=== PATIENT | male | born 1945 | race African-American/Black ===

== ENCOUNTER 2017-08-29 23:07 | Emergency (ER) | payer MEDICARE ==
[~2017-08-29] VITALS: Ht 177.8 cm; Wt 80.3 kg
[2017-08-29] MEDS ORDERED: NKM (23:21)
--- NOTE | 2017-08-29 23:56 | Emergency Room Report ---
History of Present Illness General Chief Complaint: Flu Like Symptoms Source: Patient Present Illness HPI 72-year-old male with no sig pmhx p/w abdominal pain cough, fever, chills 4 days. Has had a nonproductive cough, saw his primary care doctor today, the performed a chest x-ray but he does not know the results, was started on Levaquin and Tamiflu today Also complaining of abdominal pain , localized to the lower abdomen, non radiating, sharp in nature, intermittent. Worsened with coughing Pt reports n/v, 1 episodes of nbnb vomiting, denies diarrhea denies any black or bloody stools No hx of abdominal surgeries. No hx of endoscopies/colonoscopies. Denies chest pain or shortness of breath no recent travel Allergies: Coded Allergies: No Known Allergies (Unverified , 08/29/17) Patient History Past Medical History: see triage record Past Surgical History: none Pertinent Family History: none Reviewed Nursing Documentation: PMH: Agreed; PSxH: Agreed Nursing Documentation-PMH Past Medical History: No Stated History Review of Systems All Other Systems: negative except mentioned in HPI Physical Exam Vital Signs Date Time Temp Pulse Resp B/P (MAP) Pulse Ox O2 Delivery O2 Flow Rate FiO2 08/29/17 23:10 99.0 111 18 115/73 95 Room Air 99.0 Sp02 EP Interpretation: reviewed, normal General Appearance: alert, GCS 15, non-toxic, moderate distress Head: normocephalic, atraumatic Eyes: bilateral eye normal inspection, bilateral eye PERRL, bilateral eye EOMI ENT: normal ENT inspection, normal pharynx, normal voice, moist mucus membranes Neck: normal inspection, full range of motion, supple Respiratory: normal inspection, lungs clear, normal breath sounds, no respiratory distress, no retraction, no wheezing, speaking full sentences, chest symmetrical Cardiovascular #1: normal inspection, regular rate, rhythm, no edema, normal capillary refill Cardiovascular #2: 2+ radial (R), 2+ radial (L) Gastrointestinal: other - Right and left lower abdominal tenderness, some voluntary guarding, no rigidity Genitourinary: no CVA tenderness Musculoskeletal: normal inspection, back normal, normal range of motion, non- tender Neurologic: normal inspection, alert, oriented x3, responsive, motor strength/ tone normal, sensory intact, normal gait, speech normal Psychiatric: normal inspection, judgement/insight normal, memory normal Skin: normal inspection, normal color, no rash, warm/dry, well hydrated, normal turgor Medical Decision Making Diagnostic Impression: Primary Impression: Abdominal pain Additional Impression: Nausea ER Course 72-year-old male with abdominal pain, cough, fever, chills Differential Diagnosis: Gastritis, gastroenteritis, cholecystitis, appendicitis, diverticulitis, SBO, mesenteric ischemia, cardiac, UTI/pyelo, pneumonia Plan: Basic labs, ua, ekg CT abdopelvis ER course: Patient has remained stable during ED stay. Pain improved, labs unremarkable, CT unremarkable Repeat abdominal exam is nontender. Tolerating PO Disposition: Patient is to be discharged to home. Patient is instructed to follow up with their primary care doctor within 5 days. Strict return precautions discussed with patient such as fever, chills, worsening/severe abdominal pain, nausea, vomiting, black or bloody stools, which may indicate severe illness. Patient verbalizes understanding and agrees with plan. Please note that this Emergency Department Report was dictated using [employer] and poultry inspector technology software, occasionally this can lead to erroneous entry secondary to interpretation by the dictation equipment EKG Diagnostic Results EP Interpretation: Yes Rate: normal Rhythm: NSR ST Segments: No acute changes ASA given to patient: No Rhythm Strip EP Interpretation: Yes Rate: 90 Rhythm: NSR, no PVCs, no ectopy Chest X-ray CXR: Ordered: Yes 1 view Indication: Chest pain EP interpretation: Yes Interpretation: No consolidation, no effusion, no PTX, no acute cardiopulmonary disease Impression: No acute disease Electronically signed by Tito Rothman MD Laboratory Tests Test 08/30/17 00:00 08/30/17 02:30 White Blood Count 3.3 K/UL (4.8-10.8) L Red Blood Count 4.48 M/UL (4.70-6.10) L Hemoglobin 13.8 G/DL (14.2-18.0) L Hematocrit 40.1 % (42.0-52.0) L Mean Corpuscular Volume 89 FL (80-99) Mean Corpuscular Hemoglobin 30.7 PG (27.0-31.0) Mean Corpuscular Hemoglobin Concent 34.4 G/DL (32.0-36.0) Red Cell Distribution Width 11.5 % (11.6-14.8) L Platelet Count 140 K/UL (150-450) L Mean Platelet Volume 7.5 FL (6.5-10.1) Neutrophils (%) (Auto) % (45.0-75.0) Lymphocytes (%) (Auto) % (20.0-45.0) Monocytes (%) (Auto) % (1.0-10.0) Eosinophils (%) (Auto) % (0.0-3.0) Basophils (%) (Auto) % (0.0-2.0) Differential Total Cells Counted 100 Neutrophils % (Manual) 70 % (45-75) Lymphocytes % (Manual) 7 % (20-45) L Monocytes % (Manual) 22 % (1-10) H Eosinophils % (Manual) 0 % (0-3) Basophils % (Manual) 1 % (0-2) Band Neutrophils 0 % (0-8) Platelet Estimate Decreased L Platelet Morphology Normal Sodium Level 134 MMOL/L (136-145) L Potassium Level 4.1 MMOL/L (3.5-5.1) Chloride Level 99 MMOL/L (98-107) Carbon Dioxide Level 28 MMOL/L (21-32) Anion Gap 7 mmol/L (5-15) Blood Urea Nitrogen 20 mg/dL (7-18) H Creatinine 1.2 MG/DL (0.55-1.30) Estimate Glomerular Filtration Rate > 60 mL/min (>60) Glucose Level 111 MG/DL (74-106) H Lactic Acid Level 0.90 mmol/L (0.66-2.22) Calcium Level 8.4 MG/DL (8.5-10.1) L Total Bilirubin 0.2 MG/DL (0.2-1.0) Aspartate Amino Transferase (AST) 46 U/L (15-37) H Alanine Aminotransferase (ALT) 40 U/L (12-78) Alkaline Phosphatase 76 U/L (46-116) Troponin I 0.000 ng/mL (0.000-0.056) Pro-B-Type Natriuretic Peptide 24 pg/mL (0-125) Total Protein 7.5 G/DL (6.4-8.2) Albumin 3.6 G/DL (3.4-5.0) Globulin 3.9 g/dL Albumin/Globulin Ratio 0.9 (1.0-2.7) L Urine Color Pale yellow Urine Appearance Clear Urine pH 6 (4.5-8.0) Urine Specific [place] 1.015 (1.005-1.035) Urine Protein Negative (NEGATIVE) Urine Glucose (UA) Negative (NEGATIVE) Urine Ketones 1+ (NEGATIVE) H Urine Occult Blood Negative (NEGATIVE) Urine Nitrite Negative (NEGATIVE) Urine Bilirubin Negative (NEGATIVE) Urine Urobilinogen Normal MG/DL (0.0-1.0) Urine Leukocyte Esterase Negative (NEGATIVE) Microbiology Date/Time Source Procedure Growth Status 08/30/17 00:00 Nasal Nares Influenza Types A,B Antigen ([facility]) - Final Complete CT/MRI/US Diagnostic Results CT/MRI/US Diagnostic Results : Imaging Test Ordered: ct abdo pelvis Impression CT ABDOMEN & PELVIS With Contrast: Visualized appendix is normal. No substantial free fluid. No free air. Last Vital Signs Date Time Temp Pulse Resp B/P (MAP) Pulse Ox O2 Delivery O2 Flow Rate FiO2 08/29/17 23:36 111 18 Room Air 08/29/17 23:10 99.0 115/73 95 99.0 Disposition: HOME, SELF-CARE Condition: Improved Scripts Ondansetron Odt* (ZOFRAN ODT*) 4 Mg Tab.rapdis 4 MG ORAL Q6H PRN for Nausea & Vomiting, #15 TAB 0 Refills Prov: Tito Rothman M.D. 08/30/17 Tito Rothman M.D. Aug 29, 2017 23:56
[2017-08-30 00:32] LABS: HEMATOCRIT 40.1 % (42.0-52.0); HEMOGLOBIN 13.8 G/DL (14.2-18.0); MEAN CORPUSCULAR VOLUME 89 FL (80-99); PLATELET COUNT 140 K/UL (150-450); RED BLOOD COUNT 4.48 M/UL (4.70-6.10); RED CELL DISTRIBUTION WIDTH 11.5 % (11.6-14.8); WHITE BLOOD COUNT 3.3 K/UL (4.8-10.8)
[2017-08-30 00:37] LABS: ANION GAP 7 mmol/L (5-15); BLOOD UREA NITROGEN 20 mg/dL (7-18); CALCIUM 8.4 MG/DL (8.5-10.1); CARBON DIOXIDE 28 MMOL/L (21-32); CHLORIDE 99 MMOL/L (98-107); CREATININE 1.2 MG/DL (0.55-1.30); POTASSIUM 4.1 MMOL/L (3.5-5.1); SODIUM 134 MMOL/L (136-145)
[2017-08-30 00:48] LABS: ALANINE AMINOTRANSFERASE 40 U/L (12-78); ALBUMIN 3.6 G/DL (3.4-5.0); ALBUMIN/GLOBULIN RATIO 0.9 (1.0-2.7); ALKALINE PHOSPHATASE 76 U/L (46-116); ASPARTATE AMINO TRANSFERASE 46 U/L (15-37); BILIRUBIN,TOTAL 0.2 MG/DL (0.2-1.0)
[2017-08-30] MEDS ORDERED: ZOFRAN ODT4 MG ORAL (02:47)
[2017-08-30 02:54] VITALS: BP 127/68
[2017-08-30 03:22] LABS: APPEARANCE,URINE CLEAR; BILIRUBIN, URINE NEGATIVE (NEGATIVE); COLOR,URINE PALE YELLOW; GLUCOSE, URINE (UA) NEGATIVE (NEGATIVE); KETONES,URINE 1+ (NEGATIVE); LEUKOCYTE ESTERASE ,URINE NEGATIVE (NEGATIVE); NITRITE,URINE NEGATIVE (NEGATIVE); PH,URINE 6 (4.5-8.0); PROTEIN,URINE NEGATIVE (NEGATIVE); UROBILINOGEN,URINE NORMAL MG/DL (0.0-1.0)
[2017-08-30 03:51] VITALS: BP 135/75
[2017-08-30 03:55] VITALS: BP 135/75
--- NOTE | 2017-08-30 08:42 | Diagnostic Imaging Report ---
Indication: Abdominal pain Technique: Continuous helical transaxial imaging of the abdomen and pelvis was obtained from the lung bases to the pubic symphysis during intravenous contrast administration. Coronal 2-D reformats were also obtained. Study obtained in a Siemens sensation [address] Automatic Exposure Control was utilized. Total Dose length Product (DLP): 519.[address] Dose Index Volume (CTDIvol): 10.24 mGy Comparison: None Findings: The lung bases are clear. There are multiple hypodensities in the liver likely cysts. Similar findings within the kidneys identified. Some are too small to adequately characterize. The spleen is unremarkable. The pancreas is unremarkable. There is a probable gallbladder polyp. No free fluid seen. No evidence of bowel obstruction. Appendix is normal. Urinary bladder is unremarkable. There is a left inguinal hernia containing fat. IMPRESSION: No acute findings. Multiple incidental findings as above. [facility] has communicated the preliminary results to the Emergency Department. Their findings are largely concordant with this report. The CT scanner at [facility] is accredited by the [employer] and the scans are performed using dose optimization techniques as appropriate to a performed exam including Automatic Exposure control.
--- NOTE | 2017-08-30 10:39 | Diagnostic Imaging Report ---
Indication: Cough Comparison: None A single view chest radiograph was obtained. Findings: Cardiomediastinal appearance is within normal limits for age. Pulmonary vascularity is appropriate. The diaphragmatic contour is smooth and costophrenic angles are sharp. No pleural effusions are identified. The bones are unremarkable. Impression: No acute findings
--- NOTE | 2017-08-30 16:31 | Cardiology Report ---
APPROVED REPORT EKG Measurement Heart [id number] Normal sinus rhythm Normal ECG
== END 2017-08-30 03:59 | disposition home or self-care (01) ==
LOC: EMR 23:33 → 2E 08-30 00:48 → UNDOADMIN 08-30 00:48 → EDBEDREQ 08-30 01:12 → EMR 08-30 03:59
DX: R10.9 Unspecified abdominal pain (principal); R11.0 Nausea; K40.90 Unilateral inguinal hernia, without obstruction or gangrene, not specified as recurrent
CPT/HCPCS: 36415; 71045; 74177; 80053; 81003; 83605; 83880; 84484; 85007; 85025; 86710; 87040; 93005; 99284; Q9967